=== PATIENT | male | born 1965 | race Caucasian/White ===

== ENCOUNTER → 2017-07-01 | Outpatient (CLI) | payer BC ==
[~2017-07-01] MED LIST: LRT5 PO; OXYC-57 PO; PROM25TA PO
--- NOTE | 2017-07-01 14:28 | DIAGNOSTIC IMAGING REPORT ---
RENAL ULTRASOUND HISTORY: FLANK PAIN COMPARISON: [facility] 01/21/2008. FINDINGS: Right kidney: 14.3 cm. Mild hydronephrosis. A 1.4 cm stone within the right kidney. Normal corticomedullary differentiation and cortical thickness. Left kidney: 12.5 cm. A 1 cm stone is identified within the kidney. No hydronephrosis. Normal corticomedullary differentiation and cortical thickness. Bladder: Under distended and therefore not well evaluated. IMPRESSION: 1. Mild right hydronephrosis. 2. Bilateral nephrolithiasis. Electronically signed by: Kimani Hein M.D. 07/01/2017 2:27 PM Dictated Date/Time: 07/01/2017 2:24 PM
== END | disposition home or self-care (01) ==
LOC: C.ULTR 13:17
PROVIDERS: ATTEND Physician Assistant Surgical
DX: N20.0 Calculus of kidney (principal); N13.30 Unspecified hydronephrosis; Z87.442 Personal history of urinary calculi

== ENCOUNTER → 2017-07-20 | Outpatient (CLI) | payer BC ==
[~2017-07-20] MED LIST changes: +CETI10TA84 PO; +HYDR-5688 PO; +MOME6000 NAE; +TRAM-10 PO; +VNTHFA/IN INH
--- NOTE | 2017-07-20 08:58 | DIAGNOSTIC IMAGING REPORT ---
CT SCAN OF THE ABDOMEN AND PELVIS WITHOUT IV CONTRAST CLINICAL HISTORY: Nephrolithiasis. COMPARISON STUDY: Abdominal CT dated 12/23/2007. TECHNIQUE: CT scan of the abdomen and pelvis is performed from the lung bases to the proximal femora. Images are reviewed in the axial, sagittal, and coronal planes. IV contrast was not administered for this examination. A dose lowering technique was utilized adhering to the principles of ALARA. CT DOSE: 1064.21 mGycm FINDINGS: Lung bases: The heart is normal in size and without pericardial effusion. The lung bases are clear. Gynecomastia is noted. There is a tiny hiatal hernia. Liver: The unenhanced liver is normal in size, contour, and attenuation. There is no intrahepatic biliary ductal dilatation. A 1.5 cm cyst is noted in the left hepatic lobe. Gallbladder: Calcified gallstones are identified. There is no CT evidence of acute cholecystitis. Spleen: Normal in size and attenuation. Pancreas: Unremarkable. Adrenal glands: Unremarkable. Kidneys: The unenhanced kidneys are normal in size and without hydronephrosis. A small extrarenal pelvis is noted on the right. There is a 5 mm nonobstructing calculus in the lower pole the right kidney. No left renal calculi are identified. Numerous parapelvic cysts are seen on the left. There is no evidence of contour deforming renal mass lesion. Abdominal vasculature: The abdominal aorta is normal in course and caliber. Bowel: There is mild colonic diverticulosis without CT evidence of acute diverticulitis. Moderate colonic fecal retention is observed. No bowel obstruction is identified. The appendix is well-visualized and normal. Peritoneum: There is no intraperitoneal free air or abdominal ascites. There is a fat-containing umbilical hernia. Lymphadenopathy: There are prominent mesenteric lymph nodes in the right lower quadrant. The largest nodule is adjacent to the cecum seen on image #287 and measures up to 9 mm in short axis. There are prominent surrounding vessels and the appearance is slightly atypical. Pelvic viscera: The bladder, prostate, and seminal vesicles are normal as visualized. Skeletal structures: No lytic or blastic lesions are seen. Hemangiomas are noted in the bodies of L3 and L5. IMPRESSION: 1. There is a nonobstructing right renal calculus. No left renal calculi are identified and there is no hydronephrosis. 2. Mild colonic diverticulosis without CT evidence of acute diverticulitis. 3. There are prominent mesenteric lymph nodes/nodules in the right lower quadrant adjacent to the cecum. These are of indeterminant significance and may be on a reactive basis. If not recently performed consider follow-up colonoscopy to assess the underlying colon. At a minimum, a 3 month follow-up CT with IV contrast is recommended to reassess the largest nodule. 4. Cholelithiasis. 5. Additional findings as above. Electronically signed by: Yaron Harvey M.D. 07/20/2017 8:57 AM Dictated Date/Time: 07/20/2017 8:46 AM
--- NOTE | 2017-07-20 09:09 | DIAGNOSTIC IMAGING REPORT ---
[facility] CLINICAL HISTORY: Ureteral stone. FINDINGS: 3 AP supine abdominal radiographs are correlated with abdominal CT dated 07/20/2017. There is a nonobstructed abdominal bowel gas pattern noting moderate colonic fecal retention. A small nonobstructing calculus is present in the lower pole of the right kidney. No calcifications are seen in the left kidney or projecting along the course of the ureters. The bony structures appear intact. IMPRESSION: Nonobstructing right renal calculus. Electronically signed by: Yaron Harvey M.D. 07/20/2017 9:08 AM Dictated Date/Time: 07/20/2017 9:07 AM
== END | disposition home or self-care (01) ==
LOC: C.CTS 08:24
PROVIDERS: ATTEND Urology
DX: N20.0 Calculus of kidney (principal); N20.1 Calculus of ureter

== ENCOUNTER → 2017-07-25 | Outpatient (CLI) | payer BC ==
[~2017-07-25] MED LIST changes: -CETI10TA84 PO; -HYDR-5688 PO; -MOME6000 NAE; -TRAM-10 PO; -VNTHFA/IN INH
== END | disposition home or self-care (01) ==
LOC: C.LABSPEC 17:15
PROVIDERS: ATTEND Urology
DX: N20.0 Calculus of kidney (principal)

== ENCOUNTER → 2017-10-17 | Outpatient (CLI) | payer BC ==
[~2017-10-17] MED LIST changes: +CETI10TA84 PO; +MOME6000 NAE; +OPTIRAY 320 IV PRN; +VNTHFA/IN INH
--- NOTE | 2017-10-17 10:59 | DIAGNOSTIC IMAGING REPORT ---
ABD/PELVIS IV AND ORAL CONT CLINICAL HISTORY: 52 years-old Male presenting with R59.[id number] of the [id number]. TECHNIQUE: Multidetector CT of the abdomen and pelvis was performed after the administration of oral and intravenous contrast. IV contrast: 116 mL of Optiray 320. A dose lowering technique was used consistent with the principles of ALARA (as low as reasonably achievable). COMPARISON: 07/20/2017. CT DOSE (mGy.cm): The estimated cumulative dose is 1094.52 mGycm. FINDINGS: Analytical Laboratory Technician topogram: Unremarkable. Lung bases: Minimal basilar opacities, likely atelectasis. Normal heart size. No pericardial or pleural effusion. Liver: Normal morphology. Density consistent with hepatic steatosis. Well-defined hypodensity in the left hepatic lobe, indeterminate but likely hepatic cyst or hamartoma. Patent hepatic vasculature. Biliary: No intrahepatic or extrahepatic biliary ductal dilatation. Gallbladder contains gallstones. Pancreas: Normal. Spleen: Normal. Adrenal glands: Normal. Kidneys and ureters: Multiple parapelvic cysts more prominently on the left. Several parenchymal cysts also noted. Nonobstructing 3 mm calculus at the lower pole the right kidney. No hydronephrosis. Normal ureters. Bladder: Circumferential bladder wall thickening suggested. Pelvic organs: Prostate and seminal vesicles normal. Bowel: Soft tissue mass in the cecum, measuring approximately 2.7 cm. Denis soft tissue nodularity within the mesentery (series 3 image 299) no bowel obstruction. Mild wall thickening of the terminal ileum, nonspecific. The appendix is normal. Peritoneal cavity: No free fluid or intraperitoneal gas. Lymph nodes: Few subcentimeter lymph nodes in the right lower quadrant mesentery are suspicious. No enlarged lymph nodes in the abdomen or pelvis. Vasculature: Aorta and IVC patent and normal in caliber. Abdominal wall: Nonspecific subcutaneous edema in the lumbar region. Musculoskeletal: Degenerative changes of the spine. IMPRESSION: 1. Findings highly suspicious for a soft tissue mass in the cecum with regional direct extension into the mesentery and suspicious mesenteric lymph nodes. No other sites of lymphadenopathy in the abdomen or pelvis. GI consultation for colonoscopy to be considered. 2. Indeterminate well-defined hypodensity in the left hepatic lobe is favored to represent a benign lesion such as a hepatic cyst or hamartoma. The report will be called/faxed according to standard departmental protocol. Electronically signed by: Lamberto Shipman M.D. 10/17/2017 10:58 AM Dictated Date/Time: 10/17/2017 10:39 AM
== END | disposition home or self-care (01) ==
LOC: C.CTS 09:47
PROVIDERS: ATTEND Physician Assistant
DX: R59.1 Generalized enlarged lymph nodes (principal); R93.5 Abnormal findings on diagnostic imaging of other abdominal regions, including retroperitoneum

== ENCOUNTER → 2017-11-03 | Day surgery (SDC) | payer BC ==
[2017-10-23 08:16] VITALS: Ht 181.6 cm; Wt 109.1 kg
[~2017-11-03] VITALS: Ht 181.6 cm; Wt 109.1 kg
[~2017-11-03] MED LIST changes: +LIDOCAINE HCL 2% 2 ML VIAL (20MG/ML) ONE; -LRT5 PO; -OPTIRAY 320 IV PRN; -OXYC-57 PO; +PIPERACILL/TAZOBAC CONSULT ACTIVE PRN; +PIPERACILL/TAZOBAC IV 3.375 GM in DEXTROSE 5% 100ML 100 ML IV ONE; -PROM25TA PO; +PROPOFOL IV EMULSION 10 MG/ML 20 ML VIAL IV ONE; +SODIUM CHLORIDE 0.9% 500ML 500 ML IV ONE
--- NOTE | 2017-11-03 13:26 | Endo History and Physical ---
History & Physical Date of Service: Nov 03, 2017. Chief Complaint: Abnormal abdominal CT Referring Physician: NO PCP History of Present Illness 52 yo CM who presents for Colonoscopy secondary to abnormal CT scan of the abdomen. Past Surgical History Hx Cardiac Surgery: No Hx Internal Defibrillator: No Hx Pacemaker: No Hx Abdominal Surgery: No Hx of Implantable Prosthesis: No Hx Post-Op Nausea and Vomiting: No Hx Cancer Surgery: No Hx Thoracic Surgery: No Hx Orthopedic: No Hx Urinary Tract Surgery: Yes (LITHOTRIPSY) Family History None Social History Smoking Status: Never Smoker Hx Substance Use: No Hx Alcohol Use: Yes (OCCASIONALLY) Allergies Coded Allergies: Cat Dander (Verified Allergy, Unknown, WATERY EYES, 10/23/17) NO KNOWN DRUG ALLERGIES (Verified Allergy, Unknown, ., 10/23/17) Uncoded Allergies: MOLD (Allergy, Unknown, WATERY EYES, 10/23/17) Current Medications Reported Home Medications Medications Dose Route/Sig Max Daily Dose Days Date Category Ventolin Hfa (Albuterol) 200 Puffs/25917 Mcg Aers 2-4 Puffs INH Q6H PRN 10/23/17 Reported Zyrtec (Cetirizine HCl) 10 Mg Tab 10 Mg PO HS 10/23/17 Reported Mometasone Furoate (Mometasone Furoate (Nasal)) 50 Mcg/Act Spr 1 [place] LINDA HS 10/23/17 Reported Vital Signs Weight (Kilograms): 109.09 Height (Feet): 5 Height (Inches): 11.5 Date Time Temp Pulse Resp B/P (MAP) Pulse Ox O2 Delivery O2 Flow Rate FiO2 11/03/17 12:44 36.7 110 18 139/99 (112) 95 Room Air Physical Exam General Appearance: WD/WN, no apparent distress Respiratory/Chest: Auscultation: breath sounds normal Cardiovascular: Heart Auscultation: RRR Abdomen: Bowel Sounds: normal Inspection & Palpation: soft, non-distended, no tenderness, guarding & rebound Assessment and Plan Assessment: 52 yo CM who presents for Colonoscopy secondary to abnormal CT scan of the abdomen. Plan: Proceed with colonoscopy.
--- NOTE | 2017-11-03 14:52 | GI REPORT ---
Procedure Date: 11/03/2017 12:48 PM Procedure: Colonoscopy Indications: Abnormal CT of the GI tract Medicines: Monitored Anesthesia Care Complications: No immediate complications. CT Scan of the abdomen and pelvis was ordered post-colonoscopy for abdominal pain and imaging showed no evidence of perforation. (Reviewed with Dr. Hein) Estimated Blood Loss: Estimated blood loss: none. Procedure: Pre-Anesthesia Assessment: - Prior to the procedure, a History and Physical was performed, and patient medications and allergies were reviewed. The patient's tolerance of previous anesthesia was also reviewed. The risks and benefits of the procedure and the sedation options and risks were discussed with the patient. All questions were answered, and informed consent was obtained. Prior Anticoagulants: The patient has taken no previous anticoagulant or antiplatelet agents. ASA Grade Assessment: II - A patient with mild systemic disease. After reviewing the risks and benefits, the patient was deemed in satisfactory condition to undergo the procedure. After I obtained informed consent, the scope was passed under direct vision. Throughout the procedure, the patient's blood pressure, pulse, and oxygen saturations were monitored continuously. The scope was introduced through the anus and advanced to the cecum, identified by appendiceal orifice and ileocecal valve. The colonoscopy was performed without difficulty. The patient tolerated the procedure well. The quality of the bowel preparation was good. The ileocecal valve, appendiceal orifice, and rectum were photographed. Findings: The perianal and digital rectal examinations were normal. A frond-like/villous partially obstructing medium-sized mass was found at the ileocecal valve. The mass was non-circumferential. In addition, its diameter measured thirty mm. Oozing was present. Biopsies were taken with a cold forceps for histology. Multiple small-mouthed diverticula were found in the sigmoid colon. Non-bleeding internal hemorrhoids were found during retroflexion. The hemorrhoids were small. Impression: - Rule out malignancy, partially obstructing tumor at the ileocecal valve. Biopsied. - Non-bleeding internal hemorrhoids. Recommendation: - Resume previous diet. - Continue present medications. - Zosyn 3.375g IV once now - Await pathology results. - Check CMP, CBC, CEA and PT/INR - Refer to a surgeon at appointment to be scheduled. Babar Valentine, DO 11/03/2017 2:48:58 PM This report has been signed electronically. Note Initiated On: 11/03/2017 12:48 PM I attest to the content of the Intraoperative Record and orders documented therein, exceptions below
--- NOTE | 2017-11-03 14:52 | Discharge Instructions ---
Endoscopy Patient Instructions Date / Procedure(s) Performed Nov 03, 2017. Colonoscopy Allergy Information Coded Allergies: Cat Dander (Verified Allergy, Unknown, WATERY EYES, 10/23/17) NO KNOWN DRUG ALLERGIES (Verified Allergy, Unknown, ., 10/23/17) Uncoded Allergies: MOLD (Allergy, Unknown, WATERY EYES, 10/23/17) Discharge Date / Findings Nov 03, 2017. Mass of Ileocecal valve s/p biopsies Diverticulosis Internal hemorrhoids Medication Instructions OK to resume all medications today as prescribed Reported Home Medications Medications Dose Route/Sig Max Daily Dose Days Date Category Ventolin Hfa (Albuterol) 200 Puffs/34928 Mcg Aers 2-4 Puffs INH Q6H PRN 10/23/17 Reported Zyrtec (Cetirizine HCl) 10 Mg Tab 10 Mg PO HS 10/23/17 Reported Mometasone Furoate (Mometasone Furoate (Nasal)) 50 Mcg/Act Spr 1 [place] LINDA HS 10/23/17 Reported Provider Instructions Activity Restrictions - No exercising or heavy lifting for 24 hours. - Do not drink alcohol the day of the procedure. - Do not drive a car or operate machinery until the day after the procedure. - Do not make any important decisions or sign important papers in 24 hours after the procedure. Following Day: - Return to full activity which may include returning to work/school. Diet Start your diet with liquids and light foods (jello, soup, juice, toast). Then eat your usual diet if not nauseated. Treatment For Common After Affects For mild abdominal pain, bloating, or excessive gas: - Rest - Eat lightly - Lie on right side Follow-Up Information Follow-up with NO PCP as scheduled Anesthesia Information What You Should Know You have had a procedure that required some medicine to reduce anxiety and discomfort. This treatment is called moderate sedation. After receiving the treatment, you may be sleepy, but you will be able to breathe on your own. The effects of the treatment may last for several hours. Follow these instructions along with Activity/Diet recommendations noted above: * Do NOT do anything where dizziness or clumsiness would be dangerous. * Rest quietly at home today, then you can be up and about tomorrow. * Have a responsible person stay with you the rest of today. * You may have had an I.V. today. If so, you may take the dressing off later today. Recommendations Call your doctor if: * Trouble breathing * Continuous vomiting for more than 24 hours * Temperature above 101 degrees * Severe abdominal pain or bloating * Pain not relieved by pain medicine ordered * There is increased drainage or redness from any incision * A large amount of rectal bleeding greater than 2-3 tablespoons. (If you had a polyp/s removed or have hemorrhoids, a small amount of blood - from the rectum is to be expected.) * You have any unanswered questions or concerns. IN THE EVENT OF A SERIOUS EMERGENCY, GO TO THE NEAREST EMERGENCY ROOM Your discharge instructions were prepared by provider Babar Valentine. Patient Instructions Signature Page Dave Montes De [place] Patient (or Guardian) Signature/Date: I have read and understand the instructions given to me by my caregivers. Caregiver/RN/Doctor Signature/Date: The above-named patient and/or guardian has received patient instructions on this date. + Original Patient Signature Page (only) stays with chart. Please make copy for patient.
[2017-11-03 15:00] VITALS: BP 136/85; PULSE 84; O2SAT 100
--- NOTE | 2017-11-03 15:06 | Anesthesiology Progress Note ---
Anesthesia Post Op Note Date & Time Nov 03, 2017 at 15:05 Vital Signs Vital Signs Past 12 Hours Date Time Temp Pulse Resp B/P (MAP) Pulse Ox O2 Delivery O2 Flow Rate FiO2 11/03/17 14:40 76 18 142/83 (102) 98 Room Air 11/03/17 14:20 87 18 117/84 (95) 98 Room Air 11/03/17 14:07 93 16 127/71 (89) 96 Room Air 11/03/17 12:44 36.7 110 18 139/99 (112) 95 Room Air Notes Mental Status: alert / awake / arousable, participated in evaluation Pt Amnestic to Procedure: Yes Nausea / Vomiting: adequately controlled Pain: adequately controlled Airway Patency, RR, SpO2: stable & adequate BP & HR: stable & adequate Hydration State: stable & adequate Anesthetic Complications: no major complications apparent
--- NOTE | 2017-11-03 15:15 | DIAGNOSTIC IMAGING REPORT ---
ABDOMEN AND PELVIS CT WITHOUT CONTRAST CT DOSE: 926.16 mGy.cm HISTORY: Status post colonoscopy. Reported colon mass with prior biopsy. Acute right lower quadrant abdominal pain Colon mass s/p biopsies TECHNIQUE: Multiaxial CT images of the abdomen and pelvis were performed without contrast. A dose lowering technique was utilized adhering to the principles of ALARA. COMPARISON STUDY: CT abdomen and pelvis 10/17/2017 FINDINGS: Mild dependent subsegmental bibasilar atelectasis. There is no pneumatosis or pneumoperitoneum. Imaged inferior cardiac chambers are unremarkable. Hepatic steatosis. No intrahepatic biliary ductal dilation. 11 mm low attenuating lesion of the left hepatic lobe is unchanged, possibly reflecting a hepatic cyst however incompletely evaluated on this noncontrast study. Cholelithiasis without CT evidence of acute cholecystitis. Spleen, pancreas and adrenal glands are unremarkable. Mild nonspecific bilateral perinephric stranding with suggested renal sinus cysts on the left. Nonobstructing 6 mm calculus of the inferior pole right kidney. No ureteral calculi or obstructive uropathy. Ureters and bladder are unremarkable. Calcifications are seen within the central prostate. Aorta appears normal without aneurysm. No bowel obstruction, ascites or significant inflammatory changes identified. Soft tissue mass of the cecum is redemonstrated measuring 2.7 x 2.2 cm on image 292 series 3 with mild infiltration into the adjacent mesentery. Adjacent right lower quadrant mesenteric lymph nodes measure up to 6 mm in short axis. Normal appendix. Soft tissues are unremarkable. Bones appear intact. No suspicious lytic or blastic bony lesions. IMPRESSION: 1. No postprocedural pneumatosis or pneumoperitoneum identified. 2. 2.7 cm soft tissue mass of the cecum redemonstrated with mesenteric infiltration and likely metastatic adjacent mesenteric lymph nodes. 3. No bowel obstruction. 4. Cholelithiasis without CT evidence of acute cholecystitis. 4. Hepatic steatosis. 5. Nonobstructing calculus of the inferior pole right kidney. Electronically signed by: Sal Beckwith M.D. 11/03/2017 2:39 PM Dictated Date/Time: 11/03/2017 2:30 PM
[2017-11-03 16:34] LABS: BASO % 0.2 %; BASO ABS # 0.02 K/uL (0-0.2); EOS ABS # 0.08 K/uL (0-0.5); HEMATOCRIT 48.8 % (42-52); HEMOGLOBIN 17.4 g/dL (14.0-18.0); IG# 0.02 K/uL (0.00-0.02); LYMPH % 15.4 %; LYMPH ABS # 1.25 K/uL (1.2-3.4); MEAN CELL VOLUME 87.3 fL (80-100); MEAN CORPUSCULAR HEMOGLOBIN 31.1 pg (25-34); MEAN CORPUSCULAR HGB CONC 35.7 g/dl (32-36); MEAN PLATELET VOLUME 10.8 fL (7.4-10.4); MONO ABS # 0.49 K/uL (0.11-0.59); NEUT % 77.2 %; NEUT ABS # 6.27 K/uL (1.4-6.5); PLATELET COUNT 191 K/uL (130-400); RED CELL DISTRIBUTION WIDTH CV 12.8 % (11.5-14.5); RED CELL DISTRIBUTION WIDTH SD 40.8 fL (36.4-46.3); WHITE BLOOD COUNT 8.13 K/uL (4.8-10.8)
[2017-11-03 16:45] LABS: INR 1.1 (0.9-1.1)
[2017-11-03 17:19] LABS: ALBUMIN 3.8 gm/dl (3.4-5.0); CALCIUM 8.5 mg/dl (8.5-10.1); CREATININE 1.01 mg/dl (0.60-1.40); POTASSIUM 3.8 mmol/L (3.5-5.1)
== END | disposition home or self-care (01) ==
LOC: C.GI 12:18
PROVIDERS: ATTEND Internal Medicine
DX: R93.3 Abnormal findings on diagnostic imaging of other parts of digestive tract (principal); K57.30 Diverticulosis of large intestine without perforation or abscess without bleeding; K64.8 Other hemorrhoids

== ENCOUNTER → 2017-11-15 | Outpatient (CLI) | payer BC ==
[~2017-11-15] MED LIST changes: -LIDOCAINE HCL 2% 2 ML VIAL (20MG/ML) ONE; -PIPERACILL/TAZOBAC CONSULT ACTIVE PRN; -PIPERACILL/TAZOBAC IV 3.375 GM in DEXTROSE 5% 100ML 100 ML IV ONE; -PROPOFOL IV EMULSION 10 MG/ML 20 ML VIAL IV ONE; -SODIUM CHLORIDE 0.9% 500ML 500 ML IV ONE
== END | disposition home or self-care (01) ==
LOC: C.CPL 08:40
PROVIDERS: ATTEND Surgery
DX: K63.9 Disease of intestine, unspecified (principal)

== ENCOUNTER 2017-11-22 06:13 | Inpatient (IN) | payer BC ==
[2017-11-13 16:05] VITALS: BMI 34.0
[2017-11-21 13:45] VITALS: BP 135/83; PULSE 74; O2SAT 96
[~2017-11-22] VITALS: Ht 180.3 cm; Wt 112.2 kg
[2017-11-22] VITALS (8 sets, daily range): BP systolic 135–161; BP diastolic 83–96; PULSE 66–96; TEMP 36.7–37.6; O2SAT 92–97; Ht 180.3 cm; Wt 112.2 kg
[~2017-11-22 06:13] MED LIST changes: +CEFOXITIN IV 2,000 MG in DEXTROSE 5% 50ML 50 ML IV SCH; +LACTATED RINGER'S 1000ML 1,000 ML IV SCH; +MISSING PHYSICIAN SIGNATURE ON ORDER SCH
--- NOTE | 2017-11-22 06:46 | History & Physical Bridge Note ---
H&P Re-Evaluation Bridge Note: I have examined the patient, reviewed the History & Physical and in the interval since the performance of the History & Physical I have noted the following changes of clinical significance: No changes noted
[2017-11-22] MEDS ORDERED: ACETAMINOPHEN 1000 MG/100 ML IV IV ONE (07:37)
[2017-11-22] MEDS ORDERED: MIDAZOLAM HCL 1 MG/ML 2ML VIAL ONE (07:40)
[2017-11-22] MEDS ORDERED: FENTANYL CITRATE INJ 50 MCG/1 ML 2 ML VIAL ONE ×2 (07:40→10:04)
[2017-11-22] MEDS ORDERED: HYDROmorphone INJ 2 MG/ML SYR/VIAL ONE (07:41)
[2017-11-22] MEDS ORDERED: KETAMINE HCL INJ 50 MG/ML 10 ML VIAL ONE ×2 (07:41→08:35)
[2017-11-22] MEDS ORDERED: KETOROLAC TROMETHAMINE 30 MG/ML VIAL IV. PRN (07:45)
[2017-11-22] MEDS ORDERED: ATROPINE SULFATE 0.1 MG/ML 5ML SYR IV PRN (07:45)
[2017-11-22] MEDS ORDERED: HYDROmorphone INJ 2 MG/ML SYR/VIAL IV PRN (07:45)
[2017-11-22] MEDS ORDERED: ONDANSETRON INJ 2 MG/ML 2 ML VIAL IV PRN ×2 (07:45→11:30)
[2017-11-22] MEDS ORDERED: BUPIVACAINE 0.5 % 5 MG/1 ML MPF 30ML VIAL ONE (07:53)
[2017-11-22] MEDS ORDERED: CEFOXITIN IV 2,000 MG in DEXTROSE 5% 50ML 50 ML IV SCH (08:00)
[2017-11-22] MEDS ORDERED: LIDOCAINE HCL 2% 2 ML VIAL (20MG/ML) ONE ×2 (08:35→10:57)
[2017-11-22] MEDS ORDERED: PROPOFOL IV EMULSION 10 MG/ML 20 ML VIAL ONE (08:35)
[2017-11-22] MEDS ORDERED: DEXAMETHASONE SOD INJ 4 MG/ML VIAL ONE (08:39)
[2017-11-22] MEDS ORDERED: PHENYLEPHRINE 100MCG/ML 5ML SYR ONE (09:10)
[2017-11-22] MEDS ORDERED: CEFOXITIN SOD 1 GM VIAL ONE ×2 (10:08→10:09)
[2017-11-22] MEDS ORDERED: GLYCOPYRROLATE INJ 0.2 MG/ML VIAL ONE (10:57)
[2017-11-22] MEDS ORDERED: NEOSTIGMINE METHYLSULFATE 5 MG/5 ML SYR ONE (10:57)
[2017-11-22] MEDS ORDERED: ROCURONIUM BROMIDE 10 MG/ML 5 ML VIAL ONE (10:57)
--- NOTE | 2017-11-22 11:07 | [facility] Operative Report ---
Operative Report Operative Date November 22, 2017. Pre-Operative Diagnosis Colon Mass Post-Operative Diagnosis Same as Preop Procedure(s) Performed Diagnostic Laparoscopy; Extended Right Hemicolectomy, Ileocolonic Anastamosis Surgeon Dr. Bonilla Mailer Apprentice Surgeon(s) none Estimated Blood Loss 50 ml Findings Rt colon tumor- did not appear to be grossly extraserosal pt had significant adhesions of the omentum to the colon and significant pericolonic adipose tissue Specimens A. Distal Ileum and Right Colon Drains 5/8 in alida to subcut tissue Anesthesia Type General Complication(s) none Disposition Recovery Room / PACU I attest to the content of the Intraoperative Record and any orders documented therein. Any exceptions are noted below.
[2017-11-22] MEDS ORDERED: SODIUM CHLORIDE 0.9% 1000ML 1,000 ML IV SCH ×3 (11:20)
[2017-11-22] MEDS ORDERED: PROMETHAZINE HCL INJ 25 MG in SODIUM CHLORIDE 0.9% 50ML 50 ML IV PRN (11:30)
[2017-11-22] MEDS ORDERED: ACETAMINOPHEN IV 100 ML IV ONE (11:30)
[2017-11-22] MEDS ORDERED: NALOXONE HCL 0.4 MG/1 ML VIAL/CARP IV PRN ×4 (11:30→11:45)
[2017-11-22] MEDS ORDERED: HYDROmorphone HCL 0.5MG/ML 50 ML CASSETTE ONE (11:39)
[2017-11-22] MEDS ORDERED: PROMETHAZINE HCL INJ 12.5 MG in SODIUM CHLORIDE 0.9% 50ML 50 ML IV PRN (11:45)
--- NOTE | 2017-11-22 12:14 | Anesthesiology Progress Note ---
Anesthesia Post Op Note Date & Time November 22, 2017 at 12:14 Vital Signs Pain Intensity: 3 Vital Signs Past 12 Hours Date Time Temp Pulse Resp B/P (MAP) Pulse Ox O2 Delivery O2 Flow Rate FiO2 11/22/17 12:00 36.0 62 16 138/97 99 Nasal Cannula 4 11/22/17 11:50 64 16 131/90 93 Room Air 11/22/17 11:40 61 16 146/101 100 Oxymask 10 11/22/17 11:30 72 14 135/100 100 Oxymask 10 11/22/17 11:22 36.1 80 16 139/97 98 Oxymask 10 11/22/17 06:45 36.7 75 16 135/93 96 Room Air Notes Mental Status: alert / awake / arousable, participated in evaluation Pt Amnestic to Procedure: Yes Nausea / Vomiting: adequately controlled Pain: adequately controlled Airway Patency, RR, SpO2: stable & adequate BP & HR: stable & adequate Hydration State: stable & adequate Anesthetic Complications: no major complications apparent
--- NOTE | 2017-11-22 13:24 | Medical Consult ---
Consultation Date of Consultation: November 22, 2017. Attending Physician: Jaziel Bonilla M.D. Reason for Consultation: Medical Management History of Present Illness This is a 52 yo M with PMHx of asthma and renal calculi who underwent laparoscopic assisted Rt colon resection by Dr. Bonilla on 11/22/17. Initially was seen by CT abd/pelvis for nephrolithiasis in July 2017, upon repeat CT there was pericecal lymphadenopathy. On 11/03/17 pt underwent colonoscopy by Dr. Valentine where biopsy was obtained for follow up. Repeat biopsy was strongly recommended at that time as pathology was negative for dysplasia or carcinoma at that time. 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 Biopsy sent for pathology, and now awaiting results. Pt was seen and examined on med/surg floor. He is awake and able to participate in conversation although fatigued. His is present at bedside. He reports abdominal pain and bloating, unsure if he is passing flatus at this point. Dilaudid SISTER SUPERIOR in his hand and he is using this as needed. Pt denies any other complaints currently. Past Medical/Surgical History Asthma Colonic Mass Obesity Family History No Family History of: FH: colon cancer Social History Smoking Status: Never Smoker Smokeless Tobacco Use: No Alcohol Use: occasionally Drug Use: none Marital Status: Housing Status: lives with family Occupation Status: employed Allergies Coded Allergies: Cat Dander (Verified Allergy, Unknown, WATERY EYES, 10/23/17) NO KNOWN DRUG ALLERGIES (Verified Allergy, Unknown, NONE, 11/13/17) Molds and Smuts (Verified Adverse Reaction, Unknown, MOLD--WATERY EYES, ) Current Inpatient Medications Current Inpatient Medications Medications (Trade) Dose Ordered Sig/David Route Start Time Stop Time Status Last Admin Dose Admin Lactated Ringer's 1,000 ml @ 15 mls/hr Q24H IV 11/22/17 06:00 11/23/17 05:59 11/22/17 07:08 15 MLS/HR Cefoxitin Sodium 2000 mg/Dextrose 60 ml @ 120 mls/hr TODAY@0800 IV 11/22/17 08:00 11/22/17 18:00 Potassium Chloride/Dextrose/ Sod Cl 1,000 ml @ 125 mls/hr Q8H IV 11/22/17 11:16 12/22/17 11:15 UNV Cefoxitin Sodium 1000 mg/Dextrose 60 ml @ 100 mls/hr Q8 IV 11/22/17 14:00 12/02/17 13:59 UNV Heparin Sodium (Porcine) (Heparin Sq 5000 Unit/0.5ml) 5,000 unit Q12H SQ 11/23/17 08:00 12/23/17 07:59 UNV Pantoprazole Sodium 40 mg/ Syringe 10 ml @ 5 mls/min DAILY@11 IV 11/23/17 11:00 12/23/17 10:59 UNV Ondansetron HCl (Zofran Inj) 4 mg Q6H PRN IV 11/22/17 11:30 12/22/17 11:29 Promethazine HCl 25 mg/Sodium Chloride 51 ml @ 204 mls/hr Q6H PRN IV 11/22/17 11:30 12/22/17 11:29 Naloxone HCl (Narcan Inj) 0.1 mg Q5M PRN IV 11/22/17 11:45 12/06/17 11:44 Hydromorphone HCl (Dilaudid Coal Carrier) 25 mg PRN PRN IV 11/22/17 11:45 12/06/17 11:44 Sodium Chloride 1,000 ml @ 15 mls/hr Q24H IV 11/22/17 11:35 12/06/17 11:44 Promethazine HCl 12.5 mg/Sodium Chloride 50.5 ml @ 204 mls/hr Q6H PRN IV 11/22/17 11:45 12/22/17 11:44 Review of Systems Constitutional: + fatigue, No fever, No chills, No sweats Eyes: No discharge, No diplopia ENT: No sore throat Respiratory: No sputum, No shortness of breath Cardiovascular: No chest pain, No edema, No palpitations Abdomen: + pain, No nausea, No vomiting Musculoskeletal: No joint pain, No swelling Genitourinary - Male: + problem reported (knott cath in place) Neurologic: No numbness/tingling, No balance problems Psychiatric: No depression symptoms, No anxiety Integumentary: No rash, No itch Physical Exam Date Time Temp Pulse Resp B/P (MAP) Pulse Ox O2 Delivery O2 Flow Rate FiO2 11/22/17 12:40 36.8 66 14 137/89 (105) 96 Nasal Cannula 2.0 11/22/17 12:15 65 16 134/96 97 Room Air 4 11/22/17 12:00 36.0 62 16 138/97 99 Nasal Cannula 4 11/22/17 11:50 64 16 131/90 93 Room Air 11/22/17 11:40 61 16 146/101 100 Oxymask 10 11/22/17 11:30 72 14 135/100 100 Oxymask 10 11/22/17 11:22 36.1 80 16 139/97 98 Oxymask 10 11/22/17 06:45 36.7 75 16 135/93 96 Room Air General Appearance: WD/WN, no apparent distress, + pertinent finding (fatigued) Head: normocephalic, atraumatic Eyes: PERRL, EOMI ENT: hearing grossly normal, pharynx normal, + pertinent finding (MM slightly dry) Neck: supple, no JVD Respiratory/Chest: lungs clear, no respiratory distress, no accessory muscle use, + pertinent finding (on 2 L via NC) Cardiovascular: regular rate, rhythm, no murmur, normal peripheral pulses Abdomen/GI: + pertinent finding (absent bowel sounds, + abdominal dressing c/d/ i, no drains, + bloating. ) Genitourinary - Male: + pertinent finding (knott cath in place draining clear yellow urine) Extremities/Musculoskelatal: no calf tenderness, no pedal edema Neurologic/Psych: alert, normal mood/affect, oriented x 3 Skin: normal color, warm/dry Assessment & Plan This is a 52 yo M with PMHx of asthma and renal calculi who underwent laparoscopic assisted Rt colon resection by Dr. Bonilla on 11/22/17. Initially was seen by CT abd/pelvis for nephrolithiasis in July 2017, upon repeat CT there was pericecal lymphadenopathy. On 11/03/17 pt underwent colonoscopy by Dr. Valentine where biopsy was obtained. Repeat biopsy was strongly recommended at that time as pathology was negative for dysplasia or carcinoma at that time. 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 P Biopsy sent for pathology, awaiting results. Colonic Mass S/p extended R hemicolectomy, ileocolonic anastamosis on 11/[address] Bonilla - large amount of adhesions of omentum to the colon per surgical report - Analgesia with dilaudid SISTER SUPERIOR, diet currently NPO, PT/OT per primary team - Bx sent to pathology report, await reports - VSS, wean off O2 as tolerated as pt does not wear at home - Follow cbc, prp, mag and phos with am labs - Cont LR at 15 ml/hr x 1 bag per surgery Asthma - Cont zyrtec and Flonase as per CREEL CLE[employer]ER meds Obesity - Diet and exercise should be encouraged upon discharge. DVT ppx: heparin subq Q12H CODE: Full Disposition: From home, discharge possible within 1-2 days Thank you for involving us in the care of Mr. Montes De Oca, please do not hesitate to call with questions or concerns. Supervising Note Dr. Figueroa I performed a history and physical examination on the patient. I reviewed above note and agree with it. I discussed plan with APC and patient. During my face to face encounter with the patient, I answered all of the patient's questions. Will continue Zyrtec and flonase for asthma.
--- NOTE | 2017-11-22 13:45 | OPERATIVE REPORT ---
DATE OF OPERATION: 11/22/2017 NAME OF OPERATION: Diagnostic laparoscopy with extended right hemicolectomy and ileocolic anastomosis. PREOPERATIVE DIAGNOSIS: Cecal tumor. POSTOPERATIVE DIAGNOSIS: Same. STAFF SURGEON: Dr. Bonilla. ANESTHESIA: General. FINDINGS: The patient had significant abdominal wall adipose tissue as well as intra-abdominal pericolonic adipose tissue and mesenteric adipose tissue as well as a very large adherent omentum. There were significant adhesions to the right colon of the omentum and also to the transverse colon, I suspect secondary to the tumor and mesenteric adenopathy. It did not appear that the tumor was outside the colon. These findings did make the operation difficult. DESCRIPTION OF PROCEDURE: The patient was brought in the operating room and placed on the operating table in supine position. Pneumatic stockings, Hodge catheter, orogastric tube were placed. His abdomen was prepped and draped in usual fashion. Initially, incision was made just above the umbilicus, carrying dissection down to the fascia producing a pneumoperitoneum. After placing a Veress needle, a balloon cannula was then placed at this level and then the abdomen inspected. I placed a second 5 mm port in the suprapubic area to evaluate the tumor. The right colon was extremely adherent to the retroperitoneum as well as the omentum down over the colon on the right side and also proximal transverse colon, making it extremely difficult for dissection. I decided that an open technique would be best. Transverse incision was made on the right side, carrying dissection down into the abdomen. This was also somewhat difficult because of the significant adipose tissue. The patient's right colon and ileum were then mobilized along the right colic gutter and also mobilizing the omentum away from this area which was extremely adherent. The omentum was also down over the proximal transverse colon into the medial portion of the mesentery and with some difficulty this was mobilized. Part of the omentum was excised. At this point, with the ileum mobilized, it was then transected several centimeters proximal to the ileocecal valve. I could feel the tumor. The patient's mesentery was very large with significant adipose tissue and fullness. A SHEREE 60 stapler was used to transect the ileum and the mesentery was transected using the LigaSure and clamps with 2-0 silk suture. The proximal transverse colon was also mobilized and transected using a SHEREE 80 stapler and then the mesentery gradually transected and ligated using 2-0 silk suture and 0 chromic catgut suture being careful to identify the duodenum and take the ileocolic vessels relatively high in the mesentery. At this point, the ileocecum and right colon were sent for routine pathology. The ileum was reanastomosed to the transverse colon in a [id number]-[id number] fashion using a SHEREE 60 stapler with the enteric defect closed in 2 layers, a 2-0 chromic catgut for the mucosal layer and 3-0 silk for the seromuscular layer. Mesenteric defect was also closed using 2-0 chromic suture. The abdomen was irrigated with antibiotic solution. A posterior fascia reapproximated using running and interrupted #1 Chromic suture. Anterior fascia reapproximated using both running and interrupted #1 PDS suture. A 5/8 inch [place] drain placed in the subcutaneous space, secured to the skin using 4-0 nylon suture. Skin loosely reapproximated using kalyan. The patient was transferred to recovery room in stable condition. I did not find any evidence of metastatic disease or extra-colonic spread. I attest to the content of the Intraoperative Record and any orders documented therein. Any exception s are noted below.
[2017-11-22] MEDS: SODIUM CHLORIDE 0.9% 1000ML 1,000 ML IV SCH (14:09)
[2017-11-22 14:14] LABS: HEMATOCRIT 45.3 % (42-52); HEMOGLOBIN 16.1 g/dL (14.0-18.0); MEAN CELL VOLUME 87.3 fL (80-100); MEAN CORPUSCULAR HGB CONC 35.5 g/dl (32-36); MEAN PLATELET VOLUME 10.5 fL (7.4-10.4); PLATELET COUNT 171 K/uL (130-400); RED CELL DISTRIBUTION WIDTH CV 13.2 % (11.5-14.5); WHITE BLOOD COUNT 12.54 K/uL (4.8-10.8)
[2017-11-22 14:23] LABS: INR 1.1 (0.9-1.1); PTT PATIENT 24.3 SECONDS (21.0-31.0)
[2017-11-22] MEDS: D5W AND 1/2NSS + 20MEQ KCL 1,000 ML IV SCH ×2 (14:38→22:03)
[2017-11-22] MEDS: ACETAMINOPHEN IV 650 MG in EMPTY BAG 0 ML IV SCH ×2 (16:54→22:04)
[2017-11-22] MEDS: CEFOXITIN IV 1,000 MG in DEXTROSE 5% 50ML 50 ML IV SCH (18:20)
[2017-11-22] MEDS: HYDROmorphone HCL 0.5MG/ML 50 ML CASSETTE IV PRN (19:06)
[2017-11-22] MEDS: FLUTICASONE PROPIONATE NA SPR 16 GM BTL SCH (20:25)
[2017-11-23 03:25] VITALS: BP 130/87; PULSE 85; TEMP 37.4; O2SAT 91
[2017-11-23] MEDS: CEFOXITIN IV 1,000 MG in DEXTROSE 5% 50ML 50 ML IV SCH ×3 (03:27→19:32)
[2017-11-23 05:17] LABS: HEMATOCRIT 43.1 % (42-52); HEMOGLOBIN 15.3 g/dL (14.0-18.0); MEAN CELL VOLUME 87.1 fL (80-100); MEAN CORPUSCULAR HEMOGLOBIN 30.9 pg (25-34); MEAN CORPUSCULAR HGB CONC 35.5 g/dl (32-36); MEAN PLATELET VOLUME 10.4 fL (7.4-10.4); PLATELET COUNT 195 K/uL (130-400); RED CELL DISTRIBUTION WIDTH CV 13.1 % (11.5-14.5); RED CELL DISTRIBUTION WIDTH SD 41.5 fL (36.4-46.3); WHITE BLOOD COUNT 11.42 K/uL (4.8-10.8)
[2017-11-23 05:41] LABS: CREATININE 1.03 mg/dl (0.60-1.40); POTASSIUM 4.2 mmol/L (3.5-5.1)
[2017-11-23 05:42] LABS: PHOSPHORUS 2.3 mg/dl (2.5-4.9)
--- NOTE | 2017-11-23 05:52 | Surgery Progress Note ---
Surgery Progress Note Date of Service November 23, 2017. 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 WASHER good urine output Objective Vital Signs: Date Time Temp Pulse Resp B/P (MAP) Pulse Ox O2 Delivery O2 Flow Rate FiO2 11/23/17 03:25 37.4 85 16 130/87 (101) 91 Room Air 11/22/17 23:06 37.6 96 17 156/96 (116) 97 Room Air 11/22/17 20:24 85 135/90 (105) 11/22/17 19:47 37.2 85 17 161/91 (114) 92 Room Air 11/22/17 19:40 Room Air 11/22/17 15:41 37.3 73 16 145/83 (103) 93 Room Air 11/22/17 14:35 36.8 73 16 142/89 (106) 93 Room Air 11/22/17 13:30 83 18 143/95 (111) 93 2.0 11/22/17 12:40 96 Nasal Cannula 2.0 11/22/17 12:40 36.8 66 14 137/89 (105) 96 Nasal Cannula 2.0 11/22/17 12:15 65 16 134/96 97 Room Air 4 11/22/17 12:00 36.0 62 16 138/97 99 Nasal Cannula 4 11/22/17 11:50 64 16 131/90 93 Room Air 11/22/17 11:40 61 16 146/101 100 Oxymask 10 11/22/17 11:30 72 14 135/100 100 Oxymask 10 11/22/17 11:22 36.1 80 16 139/97 98 Oxymask 10 11/22/17 06:45 36.7 75 16 135/93 96 Room Air General Appearance: no apparent distress Respiratory/Chest: no respiratory distress Abdomen: soft Incision(s): intact, drainage (has subcu alida) Laboratory Results: Results Past 24 Hours Test 11/22/17 13:56 11/23/17 05:09 Range/Units White Blood Count 12.54 11.42 4.8-10.8 K/uL Red Blood Count 5.19 4.95 4.7-6.1 M/uL Hemoglobin 16.1 15.3 14.0-18.0 g/dL Hematocrit 45.3 43.1 42-52 % Mean Corpuscular Volume 87.3 87.1 80-100 fL Mean Corpuscular Hemoglobin 31.0 30.9 25-34 pg Mean Corpuscular Hemoglobin Concent 35.5 35.5 32-36 g/dl RDW Standard Deviation 42.0 41.5 36.4-46.3 fL RDW Coefficient of Variation 13.2 13.1 11.5-14.5 % Platelet Count 171 195 130-400 K/uL Mean Platelet Volume 10.5 10.4 7.4-10.4 fL Prothrombin Time 11.1 9.0-12.0 SECONDS Prothromb Time International Ratio 1.1 0.9-1.1 Activated Partial Thromboplast Time 24.3 21.0-31.0 SECONDS Partial Thromboplastin Ratio 0.9 Sodium Level 139 136-145 mmol/L Potassium Level 4.2 3.5-5.1 mmol/L Chloride Level 109 98-107 mmol/L Carbon Dioxide Level 25 21-32 mmol/L Anion Gap 5.0 3-11 mmol/L Blood Urea Nitrogen 9 7-18 mg/dl Creatinine 1.03 0.60-1.40 mg/dl Est Creatinine Clear Calc Drug Dose 108.1 ml/min Estimated GFR () 97.0 Estimated GFR (Non- 83.7 BUN/Creatinine Ratio 8.6 10-20 Random Glucose 147 70-99 mg/dl Calcium Level 8.0 8.5-10.1 mg/dl Phosphorus Level 2.3 2.5-4.9 mg/dl Magnesium Level 2.0 1.8-2.4 mg/dl Assessment & Plan 11/23/17- s/p open Rt hemicolectomy- cont IV, ice only, knott for now BAG WASHER, add toradol , check labs, ambulate
[2017-11-23] MEDS: D5W AND 1/2NSS + 20MEQ KCL 1,000 ML IV SCH ×3 (06:01→23:00)
[2017-11-23] MEDS: ACETAMINOPHEN IV 650 MG in EMPTY BAG 0 ML IV SCH (06:01)
[2017-11-23] MEDS: HYDROmorphone HCL 0.5MG/ML 50 ML CASSETTE IV PRN ×3 (06:52→23:00)
[2017-11-23 07:38] VITALS: BP 136/92; PULSE 84; TEMP 37.2; O2SAT 93
[2017-11-23] MEDS: HEPARIN SOD 5000 UNIT/0.5 ML CARP SQ SCH ×2 (08:56→19:32)
[2017-11-23] MEDS: SODIUM CHLORIDE 0.9% 1000ML 1,000 ML IV SCH (10:55)
[2017-11-23] MEDS: KETOROLAC TROMETHAMINE 30 MG/ML VIAL IV. SCH ×3 (11:24→23:37)
[2017-11-23] MEDS: PANTOprazole INJ 40 MG in SYRINGE 0 ML IV SCH (11:25)
[2017-11-23 11:38] VITALS: BP 147/96; PULSE 89; TEMP 37; O2SAT 94
[2017-11-23 15:15] VITALS: BP 158/99; PULSE 71; TEMP 37.2; O2SAT 93
[2017-11-23] MEDS: POT PHOSPHATE MONOBASIC W/ SOD TAB PO SCH ×2 (16:57→21:23)
[2017-11-23 19:25] VITALS: BP 157/100; PULSE 75; TEMP 37.2; O2SAT 92
[2017-11-23] MEDS: FLUTICASONE PROPIONATE NA SPR 16 GM BTL SCH (21:22)
[2017-11-23] MEDS: CETIRIZINE HCL 10 MG TAB PO SCH (21:22)
--- NOTE | 2017-11-23 21:56 | Progress Note ---
Subjective Date of Service: November 23, 2017. Subjective Pt evaluation today including: conversation w/ patient 52 yo male only complaint is that his right shoulder hurts. Patient is unsure why that is the case. Aside from his shoulder pain, he has no new complaints. Review of Systems Constitutional: No fever, No chills Eyes: No worsening of vision ENT: No hearing loss Respiratory: No sputum Cardiac: No chest pain Abdomen: No pain Musculoskeletal: No joint pain Neurologic: No memory loss Psychiatric: No depression symptoms Heme: No abnormal bleeding/bruising Endo: + fatigue Skin: No rash All Other Systems: Reviewed and Negative Objective Vital Signs Date Time Temp Pulse Resp B/P (MAP) Pulse Ox O2 Delivery O2 Flow Rate FiO2 11/23/17 19:25 37.2 75 16 157/100 (119) 92 Room Air 11/23/17 15:16 Room Air 2.0 11/23/17 15:15 37.2 71 16 158/99 (118) 93 Room Air 11/23/17 11:38 37.0 89 16 147/96 (113) 94 Room Air 11/23/17 08:00 Room Air 11/23/17 07:38 37.2 84 16 136/92 (107) 93 Room Air 11/23/17 03:25 37.4 85 16 130/87 (101) 91 Room Air 11/22/17 23:06 37.6 96 17 156/96 (116) 97 Room Air Physical Exam General Appearance: WD/WN, no apparent distress Eyes: normal inspection ENT: normal ENT inspection Neck: supple, no adenopathy Respiratory/Chest: chest non-tender, lungs clear Cardiovascular: regular rate, rhythm, no edema Abdomen: normal bowel sounds, non tender, soft Extremities: normal range of motion Neurologic/Psychiatric: alert, oriented x 3 Skin: normal color Lymphatic: no adenopathy Laboratory Results Last 24 Hours Test 11/23/17 05:09 White Blood Count 11.42 K/uL Red Blood Count 4.95 M/uL Hemoglobin 15.3 g/dL Hematocrit 43.1 % Mean Corpuscular Volume 87.1 fL Mean Corpuscular Hemoglobin 30.9 pg Mean Corpuscular Hemoglobin Concent 35.5 g/dl RDW Standard Deviation 41.5 fL RDW Coefficient of Variation 13.1 % Platelet Count 195 K/uL Mean Platelet Volume 10.4 fL Sodium Level 139 mmol/L Potassium Level 4.2 mmol/L Chloride Level 109 mmol/L Carbon Dioxide Level 25 mmol/L Anion Gap 5.0 mmol/L Blood Urea Nitrogen 9 mg/dl Creatinine 1.03 mg/dl Est Creatinine Clear Calc Drug Dose 108.1 ml/min Estimated GFR () 97.0 Estimated GFR (Non- 83.7 BUN/Creatinine Ratio 8.6 Random Glucose 147 mg/dl Calcium Level 8.0 mg/dl Phosphorus Level 2.3 mg/dl Magnesium Level 2.0 mg/dl Assessment and Plan This is a 52 yo M with PMHx of asthma and renal calculi who underwent laparoscopic assisted Rt colon resection by Dr. Bonilla on 11/22/17. Initially was seen by CT abd/pelvis for nephrolithiasis in July 2017, upon repeat CT there was pericecal lymphadenopathy. On 11/03/17 pt underwent colonoscopy by Dr. Valentine where biopsy was obtained. Repeat biopsy was strongly recommended at that time as pathology was negative for dysplasia or carcinoma at that time. 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 P Biopsy sent for pathology, awaiting results. Colonic Mass S/p extended R hemicolectomy, ileocolonic anastamosis on 11/[address] 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 On ketorolac. Asthma - Cont zyrtec and Flonase as per HIV/AIDS CARE NURSE meds - no new complaints Obesity - Diet and exercise should be encouraged upon discharge. DVT ppx: heparin subq Q12H CODE: Full
[2017-11-23 23:29] VITALS: BP 142/94; PULSE 71; TEMP 37; O2SAT 93
[2017-11-24] VITALS (7 sets, daily range): BP systolic 139–154; BP diastolic 91–105; PULSE 63–88; TEMP 36.6–36.7; O2SAT 93–96
[2017-11-24] MEDS: CEFOXITIN IV 1,000 MG in DEXTROSE 5% 50ML 50 ML IV SCH ×3 (03:54→18:31)
[2017-11-24 04:56] LABS: HEMOGLOBIN 14.2 g/dL (14.0-18.0); MEAN CELL VOLUME 88.9 fL (80-100); MEAN CORPUSCULAR HEMOGLOBIN 30.8 pg (25-34); MEAN CORPUSCULAR HGB CONC 34.6 g/dl (32-36); MEAN PLATELET VOLUME 10.7 fL (7.4-10.4); PLATELET COUNT 174 K/uL (130-400); RED CELL DISTRIBUTION WIDTH CV 13.3 % (11.5-14.5); RED CELL DISTRIBUTION WIDTH SD 43.1 fL (36.4-46.3)
[2017-11-24 05:16] LABS: CREATININE 1.22 mg/dl (0.60-1.40); PHOSPHORUS 2.2 mg/dl (2.5-4.9)
[2017-11-24] MEDS: KETOROLAC TROMETHAMINE 30 MG/ML VIAL IV. SCH ×4 (06:03→23:52)
[2017-11-24] MEDS: D5W AND 1/2NSS + 20MEQ KCL 1,000 ML IV SCH ×2 (06:03→15:36)
[2017-11-24] MEDS: HYDROmorphone HCL 0.5MG/ML 50 ML CASSETTE IV PRN ×3 (06:55→23:09)
--- NOTE | 2017-11-24 07:11 | Surgery Progress Note ---
Surgery Progress Note Date of Service November 24, 2017. Subjective vitals stable- good urine output pain controlled with FRENCH DRAWER Objective Vital Signs: Date Time Temp Pulse Resp B/P (MAP) Pulse Ox O2 Delivery O2 Flow Rate FiO2 11/24/17 03:51 36.7 63 16 142/93 (109) 94 Room Air 11/23/17 23:40 Room Air 11/23/17 23:29 37.0 71 15 142/94 (110) 93 Room Air 11/23/17 19:25 37.2 75 16 157/100 (119) 92 Room Air 11/23/17 15:16 Room Air 2.0 11/23/17 15:15 37.2 71 16 158/99 (118) 93 Room Air 11/23/17 11:38 37.0 89 16 147/96 (113) 94 Room Air 11/23/17 08:00 Room Air 11/23/17 07:38 37.2 84 16 136/92 (107) 93 Room Air General Appearance: no apparent distress Respiratory/Chest: no respiratory distress Abdomen: + distended (not firm, some bowel sounds) Incision(s): drainage (expected) Laboratory Results: Results Past 24 Hours Test 11/24/17 04:39 Range/Units White Blood Count 8.60 4.8-10.8 K/uL Red Blood Count 4.61 4.7-6.1 M/uL Hemoglobin 14.2 14.0-18.0 g/dL Hematocrit 41.0 42-52 % Mean Corpuscular Volume 88.9 80-100 fL Mean Corpuscular Hemoglobin 30.8 25-34 pg Mean Corpuscular Hemoglobin Concent 34.6 32-36 g/dl RDW Standard Deviation 43.1 36.4-46.3 fL RDW Coefficient of Variation 13.3 11.5-14.5 % Platelet Count 174 130-400 K/uL Mean Platelet Volume 10.7 7.4-10.4 fL Sodium Level 140 136-145 mmol/L Potassium Level 4.0 3.5-5.1 mmol/L Chloride Level 110 98-107 mmol/L Carbon Dioxide Level 26 21-32 mmol/L Anion Gap 4.0 3-11 mmol/L Blood Urea Nitrogen 11 7-18 mg/dl Creatinine 1.22 0.60-1.40 mg/dl Est Creatinine Clear Calc Drug Dose 91.2 ml/min Estimated GFR () 79.1 Estimated GFR (Non- 68.2 BUN/Creatinine Ratio 9.2 10-20 Random Glucose 107 70-99 mg/dl Calcium Level 8.0 8.5-10.1 mg/dl Phosphorus Level 2.2 2.5-4.9 mg/dl Magnesium Level 2.1 1.8-2.4 mg/dl Assessment & Plan 11/24/17- d/c knott, cont IV- decrease rate, ice only today possible clear liquids tomorrow, check labs Dr Snowden covering over weekend 11/23/17- s/p open Rt hemicolectomy- cont IV, ice only, knott for now FRENCH DRAWER, add toradol , check labs, ambulate 11/23/17- s/p open Rt hemicolectomy- cont IV, ice only, knott for now FRENCH DRAWER, add toradol , check labs, ambulate
[2017-11-24] MEDS: HEPARIN SOD 5000 UNIT/0.5 ML CARP SQ SCH ×2 (07:59→20:42)
[2017-11-24] MEDS: POT PHOSPHATE MONOBASIC W/ SOD TAB PO SCH ×4 (08:00→20:41)
[2017-11-24] MEDS: SODIUM CHLORIDE 0.9% 1000ML 1,000 ML IV SCH (09:47)
[2017-11-24] MEDS: PANTOprazole INJ 40 MG in SYRINGE 0 ML IV SCH (10:56)
[2017-11-24] MEDS ORDERED: NURSING VERBAL MED ORDER ONE ×2 (11:45→12:00)
[2017-11-24] MEDS: CETIRIZINE HCL 10 MG TAB PO SCH (20:41)
[2017-11-24] MEDS: FLUTICASONE PROPIONATE NA SPR 16 GM BTL SCH (20:41)
--- NOTE | 2017-11-24 22:45 | Progress Note ---
Subjective Date of Service: November 24, 2017. Subjective Pt evaluation today including: conversation w/ patient, physical exam 52 yo male reports that his right shoulder pain improved. Patient reports breathing better. He attributed the shoulder pain to holding continually his bed rail. Once he let go, the pain subsided. Review of Systems Constitutional: No fever, No chills Eyes: No worsening of vision ENT: No hearing loss Respiratory: No cough Cardiac: No chest pain Abdomen: No diarrhea, No constipation Musculoskeletal: No joint pain Male : No dysuria Neurologic: No memory loss Psychiatric: No depression symptoms Endo: + fatigue Skin: No rash All Other Systems: Reviewed and Negative Objective Vital Signs Date Time Temp Pulse Resp B/P (MAP) Pulse Ox O2 Delivery O2 Flow Rate FiO2 11/24/17 15:25 Room Air 11/24/17 15:25 150/94 (112) 11/24/17 15:11 36.7 79 16 151/101 (118) 94 Room Air 11/24/17 12:36 36.6 82 18 154/105 (121) 95 Room Air 11/24/17 07:29 36.7 88 18 144/97 (113) 96 Room Air 11/24/17 07:25 Room Air 11/24/17 03:51 36.7 63 16 142/93 (109) 94 Room Air 11/23/17 23:40 Room Air 11/23/17 23:29 37.0 71 15 142/94 (110) 93 Room Air Physical Exam Comments: General Appearance: WD/WN, no apparent distress Eyes: normal inspection ENT: normal ENT inspection Neck: supple, no adenopathy Respiratory/Chest: chest non-tender, lungs clear Cardiovascular: regular rate, rhythm, no edema Abdomen: normal bowel sounds, non tender, soft Extremities: normal range of motion Neurologic/Psychiatric: alert, oriented x 3 Skin: normal color Lymphatic: no adenopathy Laboratory Results Last 24 Hours Test 11/24/17 04:39 White Blood Count 8.60 K/uL Red Blood Count 4.61 M/uL Hemoglobin 14.2 g/dL Hematocrit 41.0 % Mean Corpuscular Volume 88.9 fL Mean Corpuscular Hemoglobin 30.8 pg Mean Corpuscular Hemoglobin Concent 34.6 g/dl RDW Standard Deviation 43.1 fL RDW Coefficient of Variation 13.3 % Platelet Count 174 K/uL Mean Platelet Volume 10.7 fL Sodium Level 140 mmol/L Potassium Level 4.0 mmol/L Chloride Level 110 mmol/L Carbon Dioxide Level 26 mmol/L Anion Gap 4.0 mmol/L Blood Urea Nitrogen 11 mg/dl Creatinine 1.22 mg/dl Est Creatinine Clear Calc Drug Dose 91.2 ml/min Estimated GFR () 79.1 Estimated GFR (Non- 68.2 BUN/Creatinine Ratio 9.2 Random Glucose 107 mg/dl Calcium Level 8.0 mg/dl Phosphorus Level 2.2 mg/dl Magnesium Level 2.1 mg/dl Assessment and Plan This is a 52 yo M with PMHx of asthma and renal calculi who underwent laparoscopic assisted Rt colon resection by Dr. Bonilla on 11/22/17. Initially was seen by CT abd/pelvis for nephrolithiasis in July 2017, upon repeat CT there was pericecal lymphadenopathy. On 11/03/17 pt underwent colonoscopy by Dr. Valentine where biopsy was obtained. Repeat biopsy was strongly recommended at that time as pathology was negative for dysplasia or carcinoma at that time. 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 P Biopsy sent for pathology, awaiting results. Colonic Mass S/p extended R hemicolectomy, ileocolonic anastamosis on 11/[address] 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 likely musculoskeletal pain. Asthma - Cont zyrtec and Flonase as per [employer] meds - no new complaints Obesity - Diet and exercise should be encouraged upon discharge. DVT ppx: heparin subq Q12H CODE: Full
[2017-11-25] MEDS: D5W AND 1/2NSS + 20MEQ KCL 1,000 ML IV SCH ×3 (01:57→23:54)
[2017-11-25 03:05] VITALS: BP 135/93; PULSE 82; TEMP 36.7; O2SAT 95
[2017-11-25] MEDS: CEFOXITIN IV 1,000 MG in DEXTROSE 5% 50ML 50 ML IV SCH ×3 (04:36→19:11)
[2017-11-25] MEDS: KETOROLAC TROMETHAMINE 30 MG/ML VIAL IV. SCH ×4 (05:44→23:47)
[2017-11-25 06:52] LABS: HEMATOCRIT 41.3 % (42-52); HEMOGLOBIN 14.6 g/dL (14.0-18.0); MEAN CELL VOLUME 88.1 fL (80-100); MEAN CORPUSCULAR HEMOGLOBIN 31.1 pg (25-34); MEAN CORPUSCULAR HGB CONC 35.4 g/dl (32-36); PLATELET COUNT 170 K/uL (130-400); RED CELL DISTRIBUTION WIDTH CV 13.2 % (11.5-14.5); RED CELL DISTRIBUTION WIDTH SD 42.3 fL (36.4-46.3); WHITE BLOOD COUNT 6.19 K/uL (4.8-10.8)
[2017-11-25] MEDS: HYDROmorphone HCL 0.5MG/ML 50 ML CASSETTE IV PRN ×3 (06:54→23:19)
--- NOTE | 2017-11-25 07:08 | Surgery Progress Note ---
Surgery Progress Note Date of Service November 25, 2017. Subjective Post OP Day: 3 + feeling well, + ambulating, + bowel movement, + flatus, + pain controlled, + diet (Tolerating ice chips), No complaints, No nausea, No vomiting Objective Vital Signs: Date Time Temp Pulse Resp B/P (MAP) Pulse Ox O2 Delivery O2 Flow Rate FiO2 11/25/17 03:05 36.7 82 18 135/93 (107) 95 Room Air 11/24/17 23:50 93 Room Air 2.0 11/24/17 22:49 36.7 80 16 139/91 (107) 93 Room Air 11/24/17 15:25 Room Air 11/24/17 15:25 150/94 (112) 11/24/17 15:11 36.7 79 16 151/101 (118) 94 Room Air 11/24/17 12:36 36.6 82 18 154/105 (121) 95 Room Air 11/24/17 07:29 36.7 88 18 144/97 (113) 96 Room Air 11/24/17 07:25 Room Air General Appearance: WD/WN, no apparent distress Head: normocephalic, atraumatic Respiratory/Chest: no respiratory distress, no accessory muscle use Abdomen: non distended, soft, no organomegaly, + tenderness (Incisional) Incision(s): clean, dry, intact Laboratory Results: Results Past 24 Hours Test 11/25/17 05:55 Range/Units White Blood Count 6.19 4.8-10.8 K/uL Red Blood Count 4.69 4.7-6.1 M/uL Hemoglobin 14.6 14.0-18.0 g/dL Hematocrit 41.3 42-52 % Mean Corpuscular Volume 88.1 80-100 fL Mean Corpuscular Hemoglobin 31.1 25-34 pg Mean Corpuscular Hemoglobin Concent 35.4 32-36 g/dl RDW Standard Deviation 42.3 36.4-46.3 fL RDW Coefficient of Variation 13.2 11.5-14.5 % Platelet Count 170 130-400 K/uL Mean Platelet Volume 11.0 7.4-10.4 fL Assessment & Plan POD #3 s/p open right hemicolectomy Dr. Snowden covering this weekend. Feeling well. Abdomen soft, non-distended. Tolerating ice chips, No N/V. urinating okay. +flatus, +BM Pain controlled with SENIOR RELATIONSHIP MANAGER - patient advised to limit use to prepare to wean and transition to PO analgesics. Clear liquids this AM, ADAT. Continue SQ heparin, IV fluids, ambulate as tolerated. Possible discharge this weekend pending on how he progresses with diet and pain management. Please contact with questions or concerns. 11/25/17 as above doing great +BM will advance diet pain controlled no acute post op issues.
[2017-11-25 07:16] VITALS: BP 145/96; PULSE 74; TEMP 36.8; O2SAT 94
[2017-11-25] MEDS: HEPARIN SOD 5000 UNIT/0.5 ML CARP SQ SCH ×2 (07:51→20:57)
[2017-11-25] MEDS: POT PHOSPHATE MONOBASIC W/ SOD TAB PO SCH ×4 (09:10→20:53)
--- NOTE | 2017-11-25 11:06 | Progress Note ---
Subjective Date of Service: November 25, 2017. Subjective Pt evaluation today including: conversation w/ patient 52 yo male reports feeling better today. He has been passing gas. Patient has no new complaints today. Review of Systems Constitutional: No fever, No chills Eyes: No worsening of vision ENT: No hearing loss Respiratory: No cough Cardiac: No chest pain Abdomen: No diarrhea, No constipation Musculoskeletal: No joint pain Male : No dysuria Neurologic: No memory loss Psychiatric: No depression symptoms Endo: + fatigue Skin: No rash All Other Systems: Reviewed and Negative Medications Current Inpatient Medications Medications (Trade) Dose Ordered Sig/David Route Start Time Stop Time Status Last Admin Dose Admin Potassium Chloride/Dextrose/ Sod Cl 1,000 ml @ 100 mls/hr Q10H IV 11/22/17 14:00 12/22/17 13:59 11/25/17 01:57 100 MLS/HR Cefoxitin Sodium 1000 mg/Dextrose 60 ml @ 100 mls/hr Q8H IV 11/22/17 19:00 12/02/17 18:59 11/25/17 04:36 100 MLS/HR Heparin Sodium (Porcine) (Heparin Sq 5000 Unit/0.5ml) 5,000 unit Q12H SQ 11/23/17 08:00 12/23/17 07:59 11/24/17 20:42 5,000 UNIT Pantoprazole Sodium 40 mg/ Syringe 10 ml @ 5 mls/min DAILY@11 IV 11/23/17 11:00 11/26/17 11:01 11/24/17 10:56 5 MLS/MIN Ondansetron HCl (Zofran Inj) 4 mg Q6H PRN IV 11/22/17 11:30 12/22/17 11:29 Promethazine HCl 25 mg/Sodium Chloride 51 ml @ 204 mls/hr Q6H PRN IV 11/22/17 11:30 12/22/17 11:29 Naloxone HCl (Narcan Inj) 0.1 mg Q5M PRN IV 11/22/17 11:45 12/06/17 11:44 Hydromorphone HCl (Dilaudid Manufacturing Process Engineer) 25 mg PRN PRN IV 11/22/17 11:45 12/06/17 11:44 11/25/17 06:54 25 MG Sodium Chloride 1,000 ml @ 15 mls/hr Q24H IV 11/22/17 11:35 12/06/17 11:44 Promethazine HCl 12.5 mg/Sodium Chloride 50.5 ml @ 204 mls/hr Q6H PRN IV 11/22/17 11:45 12/22/17 11:44 Cetirizine HCl (zyrTEC TAB) 10 mg HS PO 11/23/17 21:00 12/23/17 20:59 11/24/17 20:41 10 MG Fluticasone Propionate (Flonase Nasal [place]) 1 sprays HS NA 11/22/17 21:00 12/22/17 20:59 11/24/17 20:41 1 SPRAYS Ketorolac Tromethamine (Toradol Inj) 30 mg Q6H IV. 11/23/17 12:00 11/28/17 11:59 11/25/17 05:44 30 MG Potassium/ Phosphorus/Sodium (Phospha 250 Neutral 155-852-130 Mg) 1 tab QID PO 11/23/17 17:00 12/23/17 16:59 11/25/17 09:10 1 TAB Objective Vital Signs Date Time Temp Pulse Resp B/P (MAP) Pulse Ox O2 Delivery O2 Flow Rate FiO2 11/25/17 07:16 36.8 74 16 145/96 (112) 94 Room Air 11/25/17 03:05 36.7 82 18 135/93 (107) 95 Room Air 11/24/17 23:50 93 Room Air 2.0 11/24/17 22:49 36.7 80 16 139/91 (107) 93 Room Air 11/24/17 15:25 Room Air 11/24/17 15:25 150/94 (112) 11/24/17 15:11 36.7 79 16 151/101 (118) 94 Room Air 11/24/17 12:36 36.6 82 18 154/105 (121) 95 Room Air Physical Exam Comments: General Appearance: WD/WN, no apparent distress Eyes: normal inspection ENT: normal ENT inspection Neck: supple, no adenopathy Respiratory/Chest: chest non-tender, lungs clear Cardiovascular: regular rate, rhythm, no edema Abdomen: normal bowel sounds, non tender, soft Extremities: normal range of motion Neurologic/Psychiatric: alert, oriented x 3 Skin: normal color Lymphatic: no adenopathy Laboratory Results Last 24 Hours Test 11/25/17 05:55 White Blood Count 6.19 K/uL Red Blood Count 4.69 M/uL Hemoglobin 14.6 g/dL Hematocrit 41.3 % Mean Corpuscular Volume 88.1 fL Mean Corpuscular Hemoglobin 31.1 pg Mean Corpuscular Hemoglobin Concent 35.4 g/dl RDW Standard Deviation 42.3 fL RDW Coefficient of Variation 13.2 % Platelet Count 170 K/uL Mean Platelet Volume 11.0 fL Assessment and Plan This is a 52 yo M with PMHx of asthma and renal calculi who underwent laparoscopic assisted Rt colon resection by Dr. Bonilla on 11/22/17. Initially was seen by CT abd/pelvis for nephrolithiasis in July 2017, upon repeat CT there was pericecal lymphadenopathy. On 11/03/17 pt underwent colonoscopy by Dr. Valentine where biopsy was obtained. Repeat biopsy was strongly recommended at that time as pathology was negative for dysplasia or carcinoma at that time. 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 P Biopsy sent for pathology, awaiting results. Colonic Mass S/p extended R hemicolectomy, ileocolonic anastamosis on 11/[address] Bonilla - large amount of adhesions of omentum to the colon per surgical report - Analgesia with dilaudid RENAL CASE MANAGER, tolerating diet, just started today , PT/OT per primary team - Bx sent to pathology report, await reports - VSS, wean off O2 as tolerated as pt does not wear at home - Labs have been ok Right shoulder pain: resolved. likely musculoskeletal pain. Asthma - Cont zyrtec and Flonase as per [employer] meds - no new complaints Obesity - Diet and exercise should be encouraged upon discharge. DVT ppx: heparin subq Q12H CODE: Full will sign off case. Please call if any questions
[2017-11-25] MEDS: PANTOprazole INJ 40 MG in SYRINGE 0 ML IV SCH (11:15)
[2017-11-25 11:24] VITALS: BP 143/99; PULSE 87; TEMP 36.4; O2SAT 95
[2017-11-25] MEDS: SODIUM CHLORIDE 0.9% 1000ML 1,000 ML IV SCH (11:35)
[2017-11-25 15:07] VITALS: BP 141/98; PULSE 91; TEMP 37.2; O2SAT 95
[2017-11-25] MEDS: FLUTICASONE PROPIONATE NA SPR 16 GM BTL SCH (20:54)
[2017-11-25] MEDS: CETIRIZINE HCL 10 MG TAB PO SCH (20:54)
[2017-11-25 23:14] VITALS: BP 144/97; PULSE 69; TEMP 36.8; O2SAT 97
[2017-11-25 23:30] VITALS: O2SAT 97
[2017-11-26] MEDS: CEFOXITIN IV 1,000 MG in DEXTROSE 5% 50ML 50 ML IV SCH ×3 (03:15→19:17)
[2017-11-26 03:34] VITALS: BP 130/87; PULSE 67; TEMP 36.8; O2SAT 94
[2017-11-26] MEDS ORDERED: NURSING VERBAL MED ORDER ONE (05:15)
[2017-11-26] MEDS: KETOROLAC TROMETHAMINE 30 MG/ML VIAL IV. SCH ×4 (06:26→18:12)
--- NOTE | 2017-11-26 07:12 | Surgery Progress Note ---
Surgery Progress Note Date of Service November 26, 2017. Subjective Post OP Day: 4 + feeling well, + ambulating, + bowel movement (Liquid BM), + flatus, + pain controlled, + diet (Tolerating full liquids), No complaints, No nausea, No vomiting Objective Vital Signs: Date Time Temp Pulse Resp B/P (MAP) Pulse Ox O2 Delivery O2 Flow Rate FiO2 11/26/17 03:34 36.8 67 16 130/87 (101) 94 Room Air 11/25/17 23:30 97 Room Air 2.0 11/25/17 23:14 36.8 69 16 144/97 (113) 97 Room Air 11/25/17 15:45 Room Air 11/25/17 15:07 37.2 91 16 141/98 (112) 95 Room Air 11/25/17 11:24 36.4 87 18 143/99 (114) 95 Room Air 11/25/17 07:16 36.8 74 16 145/96 (112) 94 Room Air General Appearance: WD/WN, no apparent distress Head: normocephalic, atraumatic Respiratory/Chest: no respiratory distress, no accessory muscle use Abdomen: non distended, soft, no organomegaly, + tenderness (Incisional) Incision(s): clean, dry, intact Assessment & Plan POD #4 s/p open right hemicolectomy Dr. Snowden covering today. Pain controlled, tolerating full liquids, no N/V. +flatus, +liquid BM. Using REGULATORY COMPLIANCE DIRECTOR less, will add PO analgesics. Keep full liquids this AM, ADAT. Continue SQ heparin, IV fluids, ambulate as tolerated. Likely d/c tomorrow if he continues to do well. Please contact with questions or concerns. POD #3 s/p open right hemicolectomy Dr. Snowden covering this weekend. Feeling well. Abdomen soft, non-distended. Tolerating ice chips, No N/V. urinating okay. +flatus, +BM Pain controlled with REGULATORY COMPLIANCE DIRECTOR - patient advised to limit use to prepare to wean and transition to PO analgesics. Clear liquids this AM, ADAT. Continue SQ heparin, IV fluids, ambulate as tolerated. Possible discharge this weekend pending on how he progresses with diet and pain management. Please contact with questions or concerns.
[2017-11-26] MEDS ORDERED: HYDROCODONE/ACETAMIN 5/325MG TAB PO PRN ×2 (07:15)
[2017-11-26 07:17] VITALS: BP 152/96; PULSE 73; TEMP 36.7; O2SAT 94
[2017-11-26] MEDS: HEPARIN SOD 5000 UNIT/0.5 ML CARP SQ SCH ×2 (07:27→20:00)
[2017-11-26] MEDS: POT PHOSPHATE MONOBASIC W/ SOD TAB PO SCH ×4 (08:49→20:58)
[2017-11-26] MEDS: PANTOprazole INJ 40 MG in SYRINGE 0 ML IV SCH (11:22)
[2017-11-26 15:02] VITALS: BP 138/90; PULSE 89; TEMP 36.7; O2SAT 98
[2017-11-26] MEDS: CETIRIZINE HCL 10 MG TAB PO SCH (20:58)
[2017-11-26] MEDS: FLUTICASONE PROPIONATE NA SPR 16 GM BTL SCH (20:58)
[2017-11-26 23:35] VITALS: BP 135/88; PULSE 75; TEMP 36.9; O2SAT 96
[2017-11-26 23:40] VITALS: O2SAT 96
[2017-11-27] MEDS: KETOROLAC TROMETHAMINE 30 MG/ML VIAL IV. SCH ×3 (00:04→12:00)
[2017-11-27] MEDS: CEFOXITIN IV 1,000 MG in DEXTROSE 5% 50ML 50 ML IV SCH ×2 (03:13→10:40)
[2017-11-27] MEDS ORDERED: HYDR-5688 PO (06:19)
--- NOTE | 2017-11-27 06:22 | Discharge Instructions ---
Discharge Instructions Date of Service November 27, 2017. Admission Reason for Admission: Colonic Mass, Mass Of Cecum Discharge Discharge Diagnosis / Problem: colon tumor Discharge Goals Goal(s): Decrease discomfort, Improve function, Improve disease control Activity Recommendations Activity Limitations: as noted below Lifting Limitations: no more than 25 pounds (for 4 weeks) Exercise/Sports Limitations: until after follow-up appointment May Resume Sexual Activity: when tolerated Shower/Bathe: tomorrow Driving or Machine Use: wait one week . Instructions / Follow-Up Instructions / Follow-Up SPECIAL CARE INSTRUCTIONS: * Cover incisions and change daily for comfort/drainage. * May use ibuprofen for pain as tolerated. * Expect some swelling and bruising. Call your doctor if: * Temperature above 101 degrees * Pain not relieved by pain medicine ordered * There is increased drainage or redness from any incision * You have any unanswered questions or concerns [phone]. FOLLOW UP VISIT: If not already scheduled, please call the office for a follow-up visit. for this Wed/or Thur- drain removal- wound check OFFICE PHONE NUMBER: Dr. Bonilla Office Current Hospital Diet Patient's current hospital diet: Low Fiber Diet Discharge Diet Recommended Diet: Low Fiber Diet Procedures Procedures Performed: Diagnostic Laparoscopy; Extended Right Hemicolectomy, Ileocolonic Anastamosis Pending Studies Studies pending at discharge: no Medical Emergencies . Who to Call and When: Medical Emergencies: If at any time you feel your situation is an emergency, please call 911 immediately. . Non-Emergent Contact Non-Emergency issues call your: Primary Care Provider, Surgeon . "Provider Documentation" section prepared by Jaziel Bonilla. .
[2017-11-27 07:18] VITALS: BP 150/97; PULSE 88; TEMP 36.7; O2SAT 97
--- NOTE | 2017-11-27 07:27 | DISCHARGE SUMMARY ---
PRINCIPAL DIAGNOSIS: Right colon tumor. PROCEDURES: The patient underwent open right hemicolectomy with diagnostic laparoscopy. HISTORY OF PRESENT ILLNESS: The patient is a 52-year-old male who underwent routine colonoscopy showing a tumor in the cecal area, with initial biopsies benign. It appeared that it was a relatively large tumor with some changes on CT scan. HOSPITAL COURSE: The patient was brought in to the hospital on 11/22/2017 where he underwent elective right hemicolectomy. Initially laparoscopy was performed and then open colectomy. The patient has progressed very well in both diet and activity and was felt stable for discharge home today on 11/27/2017 to be followed in the surgical clinic within 2-3 days.
[2017-11-27] MEDS: HEPARIN SOD 5000 UNIT/0.5 ML CARP SQ SCH (08:00)
[2017-11-27] MEDS: POT PHOSPHATE MONOBASIC W/ SOD TAB PO SCH (08:20)
[2017-11-27 08:24] VITALS: O2SAT 96
[2017-11-27] MEDS ORDERED: TRAM-10 PO (10:15)
--- NOTE | 2017-11-27 10:25 | Hospitalist Progress Note ---
Hospitalist Progress Note Date of Service November 27, 2017. (Ni Davis PA-C) Subjective Pt evaluation today including: conversation w/ patient, physical exam, chart review, lab review, review of studies Pain: abdominal PO Intake: Fair Voiding: no voiding problems The patient was seen and examined this morning. Pt reports doing well overall. He is having some abdominal soreness but reports no acute abd pain. Pt is tolerating an oral diet and has been passing flatus, no solid bowel movement yet. Pt has been using toradol inj for pain relief which works well here. He reports hx of using oxycodone and percocet in the past which was not very effective. Discussion was held regarding other pain management options and he reports good relief with tramadol in the past. Constitutional: + fatigue, No fever, No chills, No sweats Eyes: + redness, + diplopia ENT: No nasal symptoms, No trouble swallowing Respiratory: No cough, No shortness of breath Cardiovascular: No chest pain, No edema, No palpitations Abdomen: + pain, No nausea, No vomiting, No diarrhea, No constipation Musculoskeletal: No joint pain, No muscle pain, No swelling Male : No dysuria Neurologic: No weakness, No numbness/tingling Endo: No fatigue Skin: No rash, No itch (Ni Davis PA-C) Objective Vital Signs Date Time Temp Pulse Resp B/P (MAP) Pulse Ox O2 Delivery O2 Flow Rate FiO2 11/27/17 08:24 96 Room Air 11/27/17 07:18 36.7 88 16 150/97 (114) 97 Room Air 11/26/17 23:40 96 Room Air 2.0 11/26/17 23:35 36.9 75 16 135/88 (104) 96 Room Air 11/26/17 15:30 Room Air 11/26/17 15:02 36.7 89 16 138/90 (106) 98 Room Air (Ni Davis PA-C) Physical Exam General Appearance: WD/WN, no apparent distress Eyes: PERRL, EOMI ENT: hearing grossly normal, pharynx normal Neck: supple, no JVD Respiratory/Chest: lungs clear, no respiratory distress, no accessory muscle use Cardiovascular: regular rate, rhythm, no JVD, no murmur Abdomen: + pertinent finding (hypoactive BS throughout, abdominal dressing c/d/ i, minimal soreness with palpation, no rebound, guarding or tenderness. ) Extremities: non-tender, no pedal edema, no calf tenderness Neurologic/Psychiatric: alert, normal mood/affect, oriented x 3 Skin: normal color, warm/dry (Ni Davis PA-C) Assessment and Plan This is a 52 yo M with PMHx of asthma and renal calculi who underwent laparoscopic assisted Rt colon resection by Dr. Bonilla on 11/22/17. Initially was seen by CT abd/pelvis for nephrolithiasis in July 2017, upon repeat CT there was pericecal lymphadenopathy. On 11/03/17 pt underwent colonoscopy by Dr. Valentine where biopsy was obtained. Repeat biopsy was strongly recommended at that time as pathology was negative for dysplasia or carcinoma at that time. 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 Biopsy sent for pathology, awaiting results. Colonic Mass S/p extended R hemicolectomy, ileocolonic anastamosis on 11/[address] Bonilla - large amount of adhesions of omentum to the colon per surgical report - Analgesia transitioned to toradol - will give Rx of tramadol x 3 days as pt reports this has worked well for him in the past - can request additional tablets if deemed appropriate from Dr. Bonilla at scheduled follow up on Monday. Tolerating diet. - PT/OT per primary team - Bx sent to pathology report, await reports - VSS, wean off O2 as tolerated as pt does not wear at home - labs wnl Asthma - Cont zyrtec and Flonase as per [employer] meds Obesity - Diet and exercise should be encouraged upon discharge. DVT ppx: heparin subq Q12H CODE: Full Disposition: From home, discharge to home today. (Ni Davis PA-C) PA Physician Supervision Note: I discussed with Ni Davis PAC and agree with findings and plan as documented in the note. Any exceptions or clarifications are listed here: None Patient is recovering from his bowel resection and reanastomosis he is doing well and was discharged by surgeries decree he is stable for discharge this time ambulating in the hallways he will follow-up with Dr. Bonilla and have Ultram for pain with a small amount given Documented By: James Wallace (James Wallace M.D.)
[2017-11-27 10:34] VITALS: BP 150/97; PULSE 88; TEMP 36.7; O2SAT 96
--- NOTE | 2017-11-29 10:53 | EDITING REQUIRED CODING QUERY ---
PATHOLOGY To promote full compliance with coding requirements relating to patient care, physician participation is requested in all cases of delivery director uncertainty. Please assist us with the question(s) below: Please review the Pathology report and please document any relevant diagnosis(es) below: Diagnosis(es):Invasive Carcinoid tumor of colon Thank you HARPREET Suárez CCS
== END 2017-11-27 12:52 | disposition home or self-care (01) | DRG 330 ==
LOC: C.ACU 06:13 → C.MSN 11:19 → ENRESERV 12:14
PROVIDERS: ADMIT Surgery; ATTEND Surgery
PROC: 0DBF0ZZ Excision of Right Large Intestine, Open Approach (ICD-10-PCS; principal; 2017-11-22 08:00)
PROC: 0DJW4ZZ Inspection of Peritoneum, Percutaneous Endoscopic Approach (ICD-10-PCS; principal; 2017-11-22 08:00)
DX: C7A.029 Malignant carcinoid tumor of the large intestine, unspecified portion (principal); N20.1 Calculus of ureter; N20.0 Calculus of kidney; J45.909 Unspecified asthma, uncomplicated; E66.9 Obesity, unspecified; M25.511 Pain in right shoulder